=== PATIENT | female | born 1945 | race Hispanic/Latino ===

== ENCOUNTER 2016-07-14 14:20 | Inpatient (IN) | payer OTHER ==
[2016-07-14] MEDS ORDERED: NACL 0.9% 1000 ML 1,000 ML ONE ×2 (14:45→19:23)
[2016-07-14] MEDS ORDERED: NACL 0.9% 1000 ML 1,000 ML IV ONE ×3 (14:46→18:41)
[2016-07-14 15:19] LABS: ISTAT Base Excess -9; ISTAT HCO3 16.2; ISTAT PCO2 26.7 (35-45); ISTAT PH 7.391 (7.35-7.45); ISTAT PO2 52 (80-105); ISTAT SITE 1; ISTAT SO2 87; ISTAT TCO2 17
[2016-07-14 15:34] LABS: Hematocrit 36.1 % (30.3-42.9); Hemoglobin 11.7 gm/dl (10.1-14.3); Mean Corpuscular HGB Conc 32 % (30-34); Mean Corpuscular Hemoglobin 31 pg (28-32); Mean Corpuscular Volume 94 fl (79-97); Platelet Count 201 K/mm3 (140-440); Red Blood Count 3.83 M/mm3 (3.65-5.03); Red Cell Distribution Width 13.8 % (13.2-15.2)
[2016-07-14] MEDS ORDERED: LEVAQUIN 750MG/150ML 750 MG/150 ML BAG IV ONE (15:42)
[2016-07-14] MEDS ORDERED: ROCEPHIN/NS 1 GM/50 ML 1 GM/50 ML BAG IV ONE (15:42)
[2016-07-14 15:45] LABS: Alanine Aminotransferase 5 units/L (7-56); Albumin 3.1 g/dL (3.9-5); Albumin/Globulin Ratio 1.3 %; Alkaline Phosphatase 55 units/L (35-129); Bilirubin,Direct < 0.2 mg/dL (0-0.2); Bilirubin,Total 0.6 mg/dL (0.1-1.2); Magnesium 1.6 mg/dL (1.7-2.3); Total Protein 5.5 g/dL (6.3-8.2)
[2016-07-14 15:49] LABS: White Blood Count 40.7 K/mm3 (4.5-11.0)
[2016-07-14 15:59] LABS: INR 1.42 (0.87-1.13); Partial Thromboplastin Time 36.2 Sec. (24.2-36.6)
[2016-07-14 16:09] LABS: BUN/Creatinine Ratio 12.85; Calcium 7.6 mg/dL (8.4-10.2); Chloride 97.1 mmol/L (98-107)
--- NOTE | 2016-07-14 16:26 | Emergency Department Report ---
ED General Adult HPI - General Chief complaint: Altered Mental Status Stated complaint: AMS Time Seen by Provider: 07/14/16 14:43 Source: patient, EMS Mode of arrival: Stretcher Limitations: No Limitations - History of Present Illness Initial comments: Patient does have a history of lung cancer. I believe that it was probably successfully surgically treated. She is not on any chronic pain patches. She does take Lortab as well as Valium however. The family found her to be difficult to wake up. She has no history of medication overuse. She does arrive in the emergency department amply awake alert and responsive to name. She knows the month. She knows she is in the hospital. She can tell me that she has been coughing for some time. She does have a chronic cough however. She denies fever or chills. She denies any acute chest pain. She also denies any leg pain or swelling. She states she has no knowledge of previous cardiac condition or VTE. -: hour(s) Location: chest (she does have some chronic left-sided chest pain she states.) Consistency: intermittent Improves with: none Worsens with: none Associated Symptoms: cough - Related Data Home Medications Medication Instructions Recorded Confirmed Last Taken Baclofen [Lioresal] 10 mg PO TID 02/15/13 08/13/13 08/12/13 17:00 10mg Diazepam Tab [Valium] 5 mg PO BID PRN 02/15/13 08/13/13 08/12/13 08:00 5mg HYDROcodone/ACETAMINOPHEN 1 tab PO TID PRN 02/15/13 08/13/13 08/12/13 15:00 [Hydrocodone Acetaminophen 7.5/500 1 mg Tab] Levothyroxine [Synthroid] 112 mcg PO QAM 02/15/13 08/13/13 08/12/13 08:00 112mcg Pravastatin Sodium [Pravastatin 1 tab PO DAILY 07/29/13 08/13/13 08/12/13 08:00 Sodium] 40mg Tiotropium [Spiriva] 1 inhalation INHALATION DAILY 07/29/13 08/13/13 08/12/13 08 :00 1 puff Allergies Allergy/AdvReac Type Severity Reaction Status Date / Time No Known Allergies Allergy Verified 07/30/13 07:33 ED Review of Systems ROS: Stated complaint: AMS Other details as noted in HPI Comment: Unobtainable due to pts medical conditions (secondary to lethargy/ altered mental status) Constitutional: weakness. denies: chills, fever Eyes: denies: eye pain, eye discharge, vision change ENT: denies: ear pain, throat pain Respiratory: cough. denies: wheezing Cardiovascular: chest pain. denies: palpitations Endocrine: no symptoms reported Gastrointestinal: denies: abdominal pain, nausea, diarrhea Genitourinary: denies: urgency, dysuria, discharge Musculoskeletal: denies: back pain, joint swelling, arthralgia Skin: denies: rash, lesions Neurological: denies: headache, weakness, paresthesias Psychiatric: denies: anxiety, depression Hematological/Lymphatic: denies: easy bleeding, easy bruising ED Past Medical Hx - Past Medical History Hx Arthritis: Yes Hx COPD: Yes Additional medical history: cholesterol. pinched nerve. disc problems in back. thyroid - Surgical History Additional Surgical History: hysterectomy. right knee surgery - Social History Smoking Status: Never Smoker Substance Use Type: Prescribed - Medications Home Medications: Home Medications Medication Instructions Recorded Confirmed Last Taken Type Baclofen [Lioresal] 10 mg PO TID 02/15/13 08/13/13 08/12/13 17:00 History 10mg Diazepam Tab [Valium] 5 mg PO BID PRN 02/15/13 08/13/13 08/12/13 08:00 History 5mg HYDROcodone/ACETAMINOPHEN 1 tab PO TID PRN 02/15/13 08/13/13 08/12/13 15:00 History [Hydrocodone Acetaminophen 7.5/500 1 mg Tab] Levothyroxine [Synthroid] 112 mcg PO QAM 02/15/13 08/13/13 08/12/13 08:00 History 112mcg Pravastatin Sodium [Pravastatin 1 tab PO DAILY 07/29/13 08/13/13 08/12/13 08:00 History Sodium] 40mg Tiotropium [Spiriva] 1 inhalation INHALATION DAILY 07/29/13 08/13/13 08/12/13 08 :00 History 1 puff ED Physical Exam - General Limitations: No Limitations General appearance: alert, in no apparent distress - Head Head exam: Present: atraumatic, normocephalic - Eye Eye exam: Present: normal appearance, PERRL, EOMI. Absent: scleral icterus - ENT ENT exam: Present: normal exam, mucous membranes moist - Neck Neck exam: Present: normal inspection - Respiratory Respiratory exam: Present: decreased breath sounds. Absent: respiratory distress - Cardiovascular Cardiovascular Exam: Present: regular rate, normal rhythm. Absent: systolic murmur, diastolic murmur, rubs, gallop - GI/Abdominal GI/Abdominal exam: Present: soft, normal bowel sounds. Absent: distended, tenderness, guarding, rebound, rigid - Extremities Exam Extremities exam: Present: normal inspection. Absent: pedal edema, joint swelling, calf tenderness - Back Exam Back exam: Present: normal inspection - Neurological Exam Neurological exam: Present: alert, oriented X3, CN II-XII intact. Absent: motor sensory deficit - Psychiatric Psychiatric exam: Present: normal affect, normal mood - Skin Skin exam: Present: warm, dry, intact, normal color. Absent: rash ED Course Vital Signs 07/14/16 07/14/16 07/14/16 14:25 14:56 15:15 Temperature 97.4 F L Pulse Rate 92 H 92 H 85 Respiratory 16 16 26 H Rate Blood Pressure 84/49 Blood Pressure 71/45 [Left] O2 Sat by Pulse 99 99 97 Oximetry 07/14/16 07/14/16 07/14/16 15:20 15:21 15:25 Temperature Pulse Rate 85 89 Respiratory 19 23 Rate Blood Pressure 95/52 81/45 Blood Pressure [Left] O2 Sat by Pulse 98 98 89 Oximetry 07/14/16 07/14/16 07/14/16 15:30 15:35 15:40 Temperature Pulse Rate 89 84 84 Respiratory 16 23 25 H Rate Blood Pressure 79/46 96/55 96/55 Blood Pressure [Left] O2 Sat by Pulse 100 98 Oximetry 07/14/16 07/14/16 07/14/16 15:45 15:50 15:55 Temperature Pulse Rate 84 86 85 Respiratory 16 27 H 20 Rate Blood Pressure 93/54 86/49 93/52 Blood Pressure [Left] O2 Sat by Pulse 98 97 Oximetry 07/14/16 07/14/16 07/14/16 16:00 16:06 16:10 Temperature Pulse Rate 87 87 88 Respiratory 20 24 40 H Rate Blood Pressure 93/51 93/51 93/51 Blood Pressure [Left] O2 Sat by Pulse 97 96 97 Oximetry 07/14/16 07/14/16 07/14/16 16:15 16:20 16:26 Temperature Pulse Rate 89 88 88 Respiratory 35 H 44 H 27 H Rate Blood Pressure 87/48 87/48 87/48 Blood Pressure [Left] O2 Sat by Pulse 96 97 97 Oximetry 07/14/16 07/14/16 07/14/16 16:30 16:36 16:40 Temperature Pulse Rate 88 88 89 Respiratory 24 25 H 19 Rate Blood Pressure 80/47 80/47 80/47 Blood Pressure [Left] O2 Sat by Pulse 98 98 98 Oximetry 07/14/16 07/14/16 07/14/16 16:45 16:50 16:56 Temperature Pulse Rate 87 86 87 Respiratory 25 H 22 16 Rate Blood Pressure 87/47 87/47 87/47 Blood Pressure [Left] O2 Sat by Pulse 97 100 Oximetry 07/14/16 07/14/16 07/14/16 17:00 17:06 17:10 Temperature Pulse Rate 86 86 86 Respiratory 26 H 25 H 24 Rate Blood Pressure 88/48 88/48 88/48 Blood Pressure [Left] O2 Sat by Pulse 98 97 Oximetry 07/14/16 07/14/16 17:15 17:20 Temperature Pulse Rate 86 87 Respiratory 25 H 25 H Rate Blood Pressure 86/49 86/49 Blood Pressure [Left] O2 Sat by Pulse 98 Oximetry - Reevaluation(s) Reevaluation #1: General blood gas was performed. The patient was found to be hypoxic. She was placed on 2 L nasal cannula. This seemed to be ample on pulse oximetry. Her laboratory workup showed significant leukocytosis. Her chest x-ray showed a left lingular infiltrate that was acute compared to prior. She was started on ceftriaxone and Levaquin. She was admitted to the hospitalist service for further care and evaluation. She was given a bolus of IV fluid. She told me that her blood pressure is always low. She did improve with IV fluid. She was warm and did not seem to be in a shock state. Admitted to the hospitalist service in stable condition. 07/14/16 18:11 ED Medical Decision Making - Lab Data Result diagrams: 07/14/16 15:03 07/14/16 15:03 Laboratory Results - last 24 hr 07/14/16 07/14/16 07/14/16 15:03 15:03 15:03 WBC 40.7 H* RBC 3.83 Hgb 11.7 Hct 36.1 MCV 94 MCH 31 MCHC 32 RDW 13.8 Plt Count 201 Add Manual Diff Complete Total Counted 200 Seg Neutrophils % [employer] Seg Neuts % (Manual) 70.5 H Band Neutrophils % 20.0 Lymphocytes % (Manual) 6.0 L Reactive Lymphs % (Man) 0 Monocytes % (Manual) 3.5 Eosinophils % (Manual) 0 Basophils % (Manual) 0 Metamyelocytes % 0 Myelocytes % 0 Promyelocytes % 0 Blast Cells % 0 Nucleated RBC % Not Reportable Seg Neutrophils # Man 28.7 H Band Neutrophils # 8.1 Lymphocytes # (Manual) 2.4 Abs React Lymphs (Man) 0.0 Monocytes # (Manual) 1.4 H Eosinophils # (Manual) 0.0 Basophils # (Manual) 0.0 Metamyelocytes # 0.0 Myelocytes # 0.0 Promyelocytes # 0.0 Blast Cells # 0.0 WBC Morphology Not Reportable Hypersegmented Neuts Not Reportable Hyposegmented Neuts Not Reportable Hypogranular Neuts Not Reportable Smudge Cells Not Reportable Toxic Granulation Not Reportable Toxic Vacuolation Not Reportable Dohle Bodies Not Reportable Pelger-Huet Anomaly Not Reportable Brenda Rods Not Reportable Platelet Estimate Consistent w auto Clumped Platelets Not Reportable Plt Clumps, EDTA Not Reportable Large Platelets Not Reportable Giant Platelets Not Reportable Platelet Satelliting Not Reportable Plt Morphology Comment Not Reportable RBC Morphology Not Reportable Dimorphic RBCs Not Reportable Polychromasia Not Reportable Hypochromasia Not Reportable Poikilocytosis 1+ Anisocytosis Not Reportable Microcytosis Not Reportable Macrocytosis Not Reportable Spherocytes Not Reportable Pappenheimer Bodies Not Reportable Sickle Cells Not Reportable Target Cells Not Reportable Tear Drop Cells Not Reportable Ovalocytes Few Helmet Cells Not Reportable Simon-Castine Bodies Not Reportable [place] Rings Not Reportable [place] Cells Not Reportable Bite Cells Not Reportable Crenated Cell Not Reportable Elliptocytes Not Reportable Acanthocytes (Spur) Not Reportable Rouleaux Not Reportable Hemoglobin C Crystals Not Reportable Schistocytes Not Reportable Malaria parasites Not Reportable Jere Bodies Not Reportable Hem Pathologist Commnt No PT 17.3 H INR 1.42 H APTT 36.2 POC ABG pH POC ABG pCO2 POC ABG pO2 POC ABG HCO3 POC ABG Total CO2 POC ABG O2 Sat POC ABG Base Excess VBG pH FiO2 Sodium Potassium Chloride Carbon Dioxide Anion Gap BUN Creatinine Estimated GFR BUN/Creatinine Ratio Glucose Lactic Acid 2.5 H* Calcium Magnesium Total Bilirubin Direct Bilirubin Indirect Bilirubin AST ALT Alkaline Phosphatase Ammonia Troponin T NT-Pro-B Natriuret Pep Total Protein Albumin Albumin/Globulin Ratio Urine Color Urine Turbidity Urine pH Ur Specific [place] Urine Protein Urine Glucose (UA) Urine Ketones Urine Blood Urine Nitrite Urine Bilirubin Urine Urobilinogen Ur Leukocyte Esterase Urine WBC (Auto) Urine RBC (Auto) U Epithel Cells (Auto) Urine Mucus 07/14/16 07/14/16 07/14/16 15:03 15:03 15:03 WBC RBC Hgb Hct MCV MCH MCHC RDW Plt Count Add Manual Diff Total Counted Seg Neutrophils % Seg Neuts % (Manual) Band Neutrophils % Lymphocytes % (Manual) Reactive Lymphs % (Man) Monocytes % (Manual) Eosinophils % (Manual) Basophils % (Manual) Metamyelocytes % Myelocytes % Promyelocytes % Blast Cells % Nucleated RBC % Seg Neutrophils # Man Band Neutrophils # Lymphocytes # (Manual) Abs React Lymphs (Man) Monocytes # (Manual) Eosinophils # (Manual) Basophils # (Manual) Metamyelocytes # Myelocytes # Promyelocytes # Blast Cells # WBC Morphology Hypersegmented Neuts Hyposegmented Neuts Hypogranular Neuts Smudge Cells Toxic Granulation Toxic Vacuolation Dohle Bodies Pelger-Huet Anomaly Brenda Rods Platelet Estimate Clumped Platelets Plt Clumps, EDTA Large Platelets Giant Platelets Platelet Satelliting Plt Morphology Comment RBC Morphology Dimorphic RBCs Polychromasia Hypochromasia Poikilocytosis Anisocytosis Microcytosis Macrocytosis Spherocytes Pappenheimer Bodies Sickle Cells Target Cells Tear Drop Cells Ovalocytes Helmet Cells Simon-Castine Bodies [place] Rings Aram Cells Bite Cells Crenated Cell Elliptocytes Acanthocytes (Spur) Rouleaux Hemoglobin C Crystals Schistocytes Malaria parasites Jere Bodies Hem Pathologist Commnt PT INR APTT POC ABG pH POC ABG pCO2 POC ABG pO2 POC ABG HCO3 POC ABG Total CO2 POC ABG O2 Sat POC ABG Base Excess VBG pH 7.337 FiO2 Sodium Potassium Chloride Carbon Dioxide Anion Gap BUN Creatinine Estimated GFR BUN/Creatinine Ratio Glucose Lactic Acid Calcium Magnesium Total Bilirubin Direct Bilirubin Indirect Bilirubin AST ALT Alkaline Phosphatase Ammonia 24.0 L Troponin T < 0.010 NT-Pro-B Natriuret Pep 2583 H Total Protein Albumin Albumin/Globulin Ratio Urine Color Urine Turbidity Urine pH Ur Specific [place] Urine Protein Urine Glucose (UA) Urine Ketones Urine Blood Urine Nitrite Urine Bilirubin Urine Urobilinogen Ur Leukocyte Esterase Urine WBC (Auto) Urine RBC (Auto) U Epithel Cells (Auto) Urine Mucus 07/14/16 07/14/16 07/14/16 15:03 15:03 15:12 WBC RBC Hgb Hct MCV MCH MCHC RDW Plt Count Add Manual Diff Total Counted Seg Neutrophils % Seg Neuts % (Manual) Band Neutrophils % Lymphocytes % (Manual) Reactive Lymphs % (Man) Monocytes % (Manual) Eosinophils % (Manual) Basophils % (Manual) Metamyelocytes % Myelocytes % Promyelocytes % Blast Cells % Nucleated RBC % Seg Neutrophils # Man Band Neutrophils # Lymphocytes # (Manual) Abs React Lymphs (Man) Monocytes # (Manual) Eosinophils # (Manual) Basophils # (Manual) Metamyelocytes # Myelocytes # Promyelocytes # Blast Cells # WBC Morphology Hypersegmented Neuts Hyposegmented Neuts Hypogranular Neuts Smudge Cells Toxic Granulation Toxic Vacuolation Dohle Bodies Pelger-Huet Anomaly Brenda Rods Platelet Estimate Clumped Platelets Plt Clumps, EDTA Large Platelets Giant Platelets Platelet Satelliting Plt Morphology Comment RBC Morphology Dimorphic RBCs Polychromasia Hypochromasia Poikilocytosis Anisocytosis Microcytosis Macrocytosis Spherocytes Pappenheimer Bodies Sickle Cells Target Cells Tear Drop Cells Ovalocytes Helmet Cells Simon-Castine Bodies [place] Rings [place] Cells Bite Cells Crenated Cell Elliptocytes Acanthocytes (Spur) Rouleaux Hemoglobin C Crystals Schistocytes Malaria parasites Jere Bodies Hem Pathologist Commnt PT INR APTT POC ABG pH 7.391 POC ABG pCO2 26.7 L POC ABG pO2 52 L POC ABG HCO3 16.2 POC ABG Total CO2 17 POC ABG O2 Sat 87 POC ABG Base Excess -9 VBG pH FiO2 21 Sodium 132 L Potassium 4.0 Chloride 97.1 L Carbon Dioxide 19 L Anion Gap 20 BUN 18 H Creatinine 1.4 H Estimated GFR 37 BUN/Creatinine Ratio 12.85 Glucose 121 H Lactic Acid Calcium 7.6 L Magnesium 1.6 L Total Bilirubin 0.6 Direct Bilirubin < 0.2 Indirect Bilirubin 0.4 AST 13 ALT 5 L Alkaline Phosphatase 55 Ammonia Troponin T NT-Pro-B Natriuret Pep Total Protein 5.5 L Albumin 3.1 L Albumin/Globulin Ratio 1.3 Urine Color Urine Turbidity Urine pH Ur Specific [place] Urine Protein Urine Glucose (UA) Urine Ketones Urine Blood Urine Nitrite Urine Bilirubin Urine Urobilinogen Ur Leukocyte Esterase Urine WBC (Auto) Urine RBC (Auto) U Epithel Cells (Auto) Urine Mucus 07/14/16 15:35 WBC RBC Hgb Hct MCV MCH MCHC RDW Plt Count Add Manual Diff Total Counted Seg Neutrophils % Seg Neuts % (Manual) Band Neutrophils % Lymphocytes % (Manual) Reactive Lymphs % (Man) Monocytes % (Manual) Eosinophils % (Manual) Basophils % (Manual) Metamyelocytes % Myelocytes % Promyelocytes % Blast Cells % Nucleated RBC % Seg Neutrophils # Man Band Neutrophils # Lymphocytes # (Manual) Abs React Lymphs (Man) Monocytes # (Manual) Eosinophils # (Manual) Basophils # (Manual) Metamyelocytes # Myelocytes # Promyelocytes # Blast Cells # WBC Morphology Hypersegmented Neuts Hyposegmented Neuts Hypogranular Neuts Smudge Cells Toxic Granulation Toxic Vacuolation Dohle Bodies Pelger-Huet Anomaly Brenda Rods Platelet Estimate Clumped Platelets Plt Clumps, EDTA Large Platelets Giant Platelets Platelet Satelliting Plt Morphology Comment RBC Morphology Dimorphic RBCs Polychromasia Hypochromasia Poikilocytosis Anisocytosis Microcytosis Macrocytosis Spherocytes Pappenheimer Bodies Sickle Cells Target Cells Tear Drop Cells Ovalocytes Helmet Cells Simon-Castine Bodies [place] Rings Aram Cells Bite Cells Crenated Cell Elliptocytes Acanthocytes (Spur) Rouleaux Hemoglobin C Crystals Schistocytes Malaria parasites Jere Bodies Hem Pathologist Commnt PT INR APTT POC ABG pH POC ABG pCO2 POC ABG pO2 POC ABG HCO3 POC ABG Total CO2 POC ABG O2 Sat POC ABG Base Excess VBG pH FiO2 Sodium Potassium Chloride Carbon Dioxide Anion Gap BUN Creatinine Estimated GFR BUN/Creatinine Ratio Glucose Lactic Acid Calcium Magnesium Total Bilirubin Direct Bilirubin Indirect Bilirubin AST ALT Alkaline Phosphatase Ammonia Troponin T NT-Pro-B Natriuret Pep Total Protein Albumin Albumin/Globulin Ratio Urine Color Yellow Urine Turbidity Clear Urine pH 7.0 Ur Specific [place] 1.014 Urine Protein <15 mg/dl Urine Glucose (UA) Neg Urine Ketones Neg Urine Blood Neg Urine Nitrite Neg Urine Bilirubin Neg Urine Urobilinogen < 2.0 Ur Leukocyte Esterase Neg Urine WBC (Auto) 1.0 Urine RBC (Auto) 3.0 U Epithel Cells (Auto) < 1.0 Urine Mucus Few - EKG Data -: EKG Interpreted by Me EKG shows normal: sinus rhythm - EKG Data Interpretation: nonspecific ST-T wave arleen, other (small inferior Q's not necessarily diagnostic) - Radiology Data interpreted by me: Infiltrate left lung probably lingular Critical care attestation.: If time is entered above; I have spent that time in minutes in the direct care of this critically ill patient, excluding procedure time. ED Disposition Clinical Impression: History of lung cancer Pneumonia Qualifiers: Pneumonia type: due to unspecified organism Laterality: left Lung location: lower lobe of lung Qualified Code(s): J18.9 - Pneumonia, unspecified organism Leukocytosis Qualifiers: Leukocytosis type: bandemia Qualified Code(s): D72.825 - Bandemia Hypotension Qualifiers: Hypotension type: unspecified hypotension type Qualified Code(s): I95.9 - Hypotension, unspecified Disposition: OP ADMITTED IP TO THIS HOSP Is pt being admited?: Yes Does the pt Need Aspirin: Yes Condition: Stable Instructions: Bacterial Pneumonia (ED) Referrals: PRIMARY CARE, [Primary Care Provider] - 3-5 Days Time of Disposition: 18:16
[2016-07-14 16:28] LABS: Bilirubin,Urine NEG (Negative); Blood,Urine NEG (Negative); Ketones,Urine NEG (Negative); Leukocyte Esterase,Urine NEG (Negative); Mucus,Urine FEW /HPF; Nitrite,Urine NEG (Negative); Protein,Urine <15 mg/dL mg/dL (Negative); Urobilinogen,Urine < 2.0 mg/dL (<2.0)
[2016-07-14 16:56] LABS: Bilirubin,Indirect 0.4 mg/dL
[2016-07-14 17:10] LABS: Basophils % (Manual) 0 % (0.0-1.8); Blastocytes % (Manual) 0 %; Diff Status Complete; Eosinophils % (Manual) 0 % (0.0-4.3); Ovalocytes Few; Platelet Estimate Consistent w Auto; Poikilocytosis 1+; Total Cells Counted Percent 3.5
[2016-07-14] MEDS ORDERED: BABY ASPIRIN PO ONE (18:16)
--- NOTE | 2016-07-14 18:37 | History and Physical Report ---
History of Present Illness Date of examination: 07/14/16 Chief complaint: AMS History of present illness: Patient is 71-year-old fairly independent woman who still drives with a history of left lung cancer status post removal, dyslipidemia and hypothyroidism who presents with AMS due to difficult to arouse. She is thirsty, warm and sleepy, unable to get a good history because she is lethargic and drowsy. She does have a cough but uncertain the severity or productivity. She is not sure about a fever. Past History Past Medical History: other (as hpi) Past Surgical History: cataract removal, hysterectomy, hernia repair, Other ( right knee surgery and portion of left lung removed) Social history: full code. denies: smoking, alcohol abuse, prescription drug abuse, IV drug use Family history: no significant family history Medications and Allergies Allergies Allergy/AdvReac Type Severity Reaction Status Date / Time No Known Allergies Allergy Verified 07/30/13 07:33 Home Medications Medication Instructions Recorded Confirmed Last Taken Type Baclofen [Lioresal] 10 mg PO TID 02/15/13 07/14/16 08/12/13 17:00 History 10mg Diazepam Tab [Valium] 5 mg PO BID PRN 02/15/13 07/14/16 08/12/13 08:00 History 5mg HYDROcodone/ACETAMINOPHEN 1 tab PO TID PRN 02/15/13 07/14/16 08/12/13 15:00 History [Hydrocodone Acetaminophen 7.5/500 1 mg Tab] Levothyroxine [Synthroid] 112 mcg PO QAM 02/15/13 07/14/16 08/12/13 08:00 History 112mcg Pravastatin Sodium [Pravastatin 1 tab PO DAILY 07/29/13 07/14/16 08/12/13 08:00 History Sodium] 40mg Tiotropium [Spiriva] 1 inhalation INHALATION DAILY 07/29/13 07/14/16 08/12/13 08 :00 History 1 puff Active Meds: Active Medications Heparin Sodium (Porcine) (Heparin) 5,000 unit SUB-Q Q12HR MATTHEW Sodium Chloride (Nacl 0.9% 1000 Ml) 1,000 mls @ 250 mls/hr IV ONCE ONE Stop: 07/14/16 20:48 Last Admin: 07/14/16 16:49 Dose: 250 mls/hr Review of Systems All systems: negative (as HPI and all other ROS reviewed and negative.) Exam - Physical Exam Narrative exam: GEN: Cachectic thin frail ill-appearing toxic with mild increase accessory muscle usage lethargic HEENT: NCAT, PERRL, EOMI, OP VERY dry NECK: SUPPLE, NO THYROMEGALY, NO JVD, NO LAD CVS: RRR, NORMAL S1S2 LUNGS/CHEST: Tachypnea, bibasilar crackles NORMAL CHEST EXPANSION B, diminished AIR ENTRY B ABD: SOFT NTND, GBS, NO REBOUND OR GUARDING EXT/SKIN: NO SIGNIFICANT EDEMA OR RASH, mucous membranes membranes dry MSK: FROM X 4 EXTREMITIES NEURO: CN 2-12 GROSSLY INTACT, NO FOCAL DEFICITS PSY: CALM - Constitutional Vitals: Temp Pulse Resp BP Pulse Ox 97.4 F L 87 25 H 86/49 98 07/14/16 14:25 07/14/16 17:20 07/14/16 17:20 07/14/16 17:20 07/14/16 17:20 Results - Labs CBC & Chem 7: 07/14/16 15:03 07/14/16 15:03 Labs: Abnormal lab results 07/14/16 07/14/16 07/14/16 Range/Units 15:03 15:03 15:03 WBC 40.7 H* (4.5-11.0) K/mm3 Seg Neuts % (Manual) 70.5 H (40.0-70.0) % Lymphocytes % (Manual) 6.0 L (13.4-35.0) % Seg Neutrophils # Man 28.7 H (1.8-7.7) K/mm3 Monocytes # (Manual) 1.4 H (0.0-0.8) K/mm3 PT 17.3 H (12.2-14.9) Sec. INR 1.42 H (0.87-1.13) POC ABG pCO2 (35-45) POC ABG pO2 (80-105) Sodium (137-145) mmol/L Chloride (98-107) mmol/L Carbon Dioxide (22-30) mmol/L BUN (7-17) mg/dL Creatinine (0.7-1.2) mg/dL Glucose (65-100) mg/dL Lactic Acid 2.5 H* (0.7-2.0) mmol/L Calcium (8.4-10.2) mg/dL Magnesium (1.7-2.3) mg/dL ALT (7-56) units/L Ammonia (25-60) umol/L NT-Pro-B Natriuret Pep (0-900) pg/mL Total Protein (6.3-8.2) g/dL Albumin (3.9-5) g/dL 07/14/16 07/14/16 07/14/16 Range/Units 15:03 15:03 15:03 WBC (4.5-11.0) K/mm3 Seg Neuts % (Manual) (40.0-70.0) % Lymphocytes % (Manual) (13.4-35.0) % Seg Neutrophils # Man (1.8-7.7) K/mm3 Monocytes # (Manual) (0.0-0.8) K/mm3 PT (12.2-14.9) Sec. INR (0.87-1.13) POC ABG pCO2 (35-45) POC ABG pO2 (80-105) Sodium (137-145) mmol/L Chloride (98-107) mmol/L Carbon Dioxide (22-30) mmol/L BUN (7-17) mg/dL Creatinine (0.7-1.2) mg/dL Glucose (65-100) mg/dL Lactic Acid (0.7-2.0) mmol/L Calcium (8.4-10.2) mg/dL Magnesium 1.6 L (1.7-2.3) mg/dL ALT 5 L (7-56) units/L Ammonia 24.0 L (25-60) umol/L NT-Pro-B Natriuret Pep 2583 H (0-900) pg/mL Total Protein 5.5 L (6.3-8.2) g/dL Albumin 3.1 L (3.9-5) g/dL 07/14/16 07/14/16 Range/Units 15:03 15:12 WBC (4.5-11.0) K/mm3 Seg Neuts % (Manual) (40.0-70.0) % Lymphocytes % (Manual) (13.4-35.0) % Seg Neutrophils # Man (1.8-7.7) K/mm3 Monocytes # (Manual) (0.0-0.8) K/mm3 PT (12.2-14.9) Sec. INR (0.87-1.13) POC ABG pCO2 26.7 L (35-45) POC ABG pO2 52 L (80-105) Sodium 132 L (137-145) mmol/L Chloride 97.1 L (98-107) mmol/L Carbon Dioxide 19 L (22-30) mmol/L BUN 18 H (7-17) mg/dL Creatinine 1.4 H (0.7-1.2) mg/dL Glucose 121 H (65-100) mg/dL Lactic Acid (0.7-2.0) mmol/L Calcium 7.6 L (8.4-10.2) mg/dL Magnesium (1.7-2.3) mg/dL ALT (7-56) units/L Ammonia (25-60) umol/L NT-Pro-B Natriuret Pep (0-900) pg/mL Total Protein (6.3-8.2) g/dL Albumin (3.9-5) g/dL Assessment and Plan Patient is 71-year-old fairly independent woman who still drives with a history of left lung cancer status post removal, dyslipidemia and hypothyroidism who presents with AMS due to difficult to arouse. She is thirsty, warm and sleepy, unable to get a good history because she is lethargic and drowsy. She does have a cough but uncertain the severity or productivity. She is not sure about a fever. SBP still in 80 after 2liters on normal saline. On Venturi mask 35% Fio2. - Acute encephalopathy - Suspected L lung Pna: iv abx - Hypotensive, dehydrated clinically, needs more ivf - Severe sepsis, WBC 40k, make sure repeat lactic levels
[2016-07-14] MEDS ORDERED: ZOFRAN IV PRN (18:41)
[2016-07-14] MEDS ORDERED: TYLENOL PO PRN (18:41)
[2016-07-14] MEDS ORDERED: BABY ASPIRIN ONE (18:48)
[2016-07-15 04:29] LABS: Hematocrit 35.2 % (30.3-42.9); Hemoglobin 11.5 gm/dl (10.1-14.3); Mean Corpuscular HGB Conc 33 % (30-34); Mean Corpuscular Hemoglobin 31 pg (28-32); Mean Corpuscular Volume 94 fl (79-97); Platelet Count 196 K/mm3 (140-440); Red Blood Count 3.75 M/mm3 (3.65-5.03)
[2016-07-15 04:31] LABS: White Blood Count 36.9 K/mm3 (4.5-11.0)
[2016-07-15 04:46] LABS: Chloride 106.5 mmol/L (98-107); Potassium 4.2 mmol/L (3.6-5.0)
--- NOTE | 2016-07-15 08:24 | Progress Note ---
Assessment and Plan Assessment and plan: Acute metabolic nephropathy. This is much improved. She is now awake, alert, oriented. She is medically stable to transfer out of the unit Pneumonia left lung. Continue Levaquin IV. Pulmonology consulted. May need to rule out mass. Marked leukocytosis due to Pneumonia, possible sepsis Hyponatremia. Sodium was 132 on admission. This is now resolved. Acute kidney injury, improving. Continue IV fluids DVT Prophylaxis with Heparin subcut Qhs full CODE STATUS History of left lung cancer status post surgery Dyslipidemia Hypothyroidism History Interval history: Patiet admitted with altered mental status shortness of breath, Feels better, No more confusion, less shortness of breath Hospitalist Physical - Physical exam Narrative exam: Gen appearance: not in acute distress, HEENT: Normocephalic, atraumatic Neck : supple, no JVD Lungs: Lungs decreased breath sounds, no crackles or wheeze. Heart : S1 and S2 regular, no murmurs rubs or gallop, Abdomen: soft non-tender, non-distended, normal bowel sounds Extremities: No edema clubbing or cyanosis, Neuro :awake, alert, oriented, no focal signs, Psych: calm - Constitutional Vitals: Temp Pulse Resp BP Pulse Ox 98.1 F 80 23 120/75 95 07/15/16 07:58 07/15/16 08:00 07/15/16 08:00 07/15/16 08:00 07/15/16 08:00 Results - Labs CBC & Chem 7: 07/15/16 03:44 07/15/16 03:44 Labs: Laboratory Last Values WBC 36.9 K/mm3 (4.5-11.0) H 07/15/16 03:44 RBC 3.75 M/mm3 (3.65-5.03) 07/15/16 03:44 Hgb 11.5 gm/dl (10.1-14.3) 07/15/16 03:44 Hct 35.2 % (30.3-42.9) 07/15/16 03:44 MCV 94 fl (79-97) 07/15/16 03:44 MCH 31 pg (28-32) 07/15/16 03:44 MCHC 33 % (30-34) 07/15/16 03:44 RDW 14.0 % (13.2-15.2) 07/15/16 03:44 Plt Count 196 K/mm3 (140-440) 07/15/16 03:44 Add Manual Diff Complete 07/14/16 15:03 Total Counted 200 07/14/16 15:03 Seg Neutrophils % Physician Relations Representative 07/14/16 15:03 Seg Neuts % (Manual) 70.5 % (40.0-70.0) H 07/14/16 15:03 Band Neutrophils % 20.0 % 07/14/16 15:03 Lymphocytes % (Manual) 6.0 % (13.4-35.0) L 07/14/16 15:03 Reactive Lymphs % (Man) 0 % 07/14/16 15:03 Monocytes % (Manual) 3.5 % (0.0-7.3) 07/14/16 15:03 Eosinophils % (Manual) 0 % (0.0-4.3) 07/14/16 15:03 Basophils % (Manual) 0 % (0.0-1.8) 07/14/16 15:03 Metamyelocytes % 0 % 07/14/16 15:03 Myelocytes % 0 % 07/14/16 15:03 Promyelocytes % 0 % 07/14/16 15:03 Blast Cells % 0 % 07/14/16 15:03 Nucleated RBC % Not Reportable 07/14/16 15:03 Seg Neutrophils # Man 28.7 K/mm3 (1.8-7.7) H 07/14/16 15:03 Band Neutrophils # 8.1 K/mm3 07/14/16 15:03 Lymphocytes # (Manual) 2.4 K/mm3 (1.2-5.4) 07/14/16 15:03 Abs React Lymphs (Man) 0.0 K/mm3 07/14/16 15:03 Monocytes # (Manual) 1.4 K/mm3 (0.0-0.8) H 07/14/16 15:03 Eosinophils # (Manual) 0.0 K/mm3 (0.0-0.4) 07/14/16 15:03 Basophils # (Manual) 0.0 K/mm3 (0.0-0.1) 07/14/16 15:03 Metamyelocytes # 0.0 K/mm3 07/14/16 15:03 Myelocytes # 0.0 K/mm3 07/14/16 15:03 Promyelocytes # 0.0 K/mm3 07/14/16 15:03 Blast Cells # 0.0 K/mm3 07/14/16 15:03 WBC Morphology Not Reportable 07/14/16 15:03 Hypersegmented Neuts Not Reportable 07/14/16 15:03 Hyposegmented Neuts Not Reportable 07/14/16 15:03 Hypogranular Neuts Not Reportable 07/14/16 15:03 Smudge Cells Not Reportable 07/14/16 15:03 Toxic Granulation Not Reportable 07/14/16 15:03 Toxic Vacuolation Not Reportable 07/14/16 15:03 Dohle Bodies Not Reportable 07/14/16 15:03 Pelger-Huet Anomaly Not Reportable 07/14/16 15:03 Brenda Rods Not Reportable 07/14/16 15:03 Platelet Estimate Consistent w auto 07/14/16 15:03 Clumped Platelets Not Reportable 07/14/16 15:03 Plt Clumps, EDTA Not Reportable 07/14/16 15:03 Large Platelets Not Reportable 07/14/16 15:03 Giant Platelets Not Reportable 07/14/16 15:03 Platelet Satelliting Not Reportable 07/14/16 15:03 Plt Morphology Comment Not Reportable 07/14/16 15:03 RBC Morphology Not Reportable 07/14/16 15:03 Dimorphic RBCs Not Reportable 07/14/16 15:03 Polychromasia Not Reportable 07/14/16 15:03 Hypochromasia Not Reportable 07/14/16 15:03 Poikilocytosis 1+ 07/14/16 15:03 Anisocytosis Not Reportable 07/14/16 15:03 Microcytosis Not Reportable 07/14/16 15:03 Macrocytosis Not Reportable 07/14/16 15:03 Spherocytes Not Reportable 07/14/16 15:03 Pappenheimer Bodies Not Reportable 07/14/16 15:03 Sickle Cells Not Reportable 07/14/16 15:03 Target Cells Not Reportable 07/14/16 15:03 Tear Drop Cells Not Reportable 07/14/16 15:03 Ovalocytes Few 07/14/16 15:03 Helmet Cells Not Reportable 07/14/16 15:03 Simon-[place] Bodies Not Reportable 07/14/16 15:03 Palo Rings Not Reportable 07/14/16 15:03 Aram Cells Not Reportable 07/14/16 15:03 Bite Cells Not Reportable 07/14/16 15:03 Crenated Cell Not Reportable 07/14/16 15:03 Elliptocytes Not Reportable 07/14/16 15:03 Acanthocytes (Spur) Not Reportable 07/14/16 15:03 Rouleaux Not Reportable 07/14/16 15:03 Hemoglobin C Crystals Not Reportable 07/14/16 15:03 Schistocytes Not Reportable 07/14/16 15:03 Malaria parasites Not Reportable 07/14/16 15:03 Jere Bodies Not Reportable 07/14/16 15:03 Hem Pathologist Commnt No 07/14/16 15:03 PT 17.3 Sec. (12.2-14.9) H 07/14/16 15:03 INR 1.42 (0.87-1.13) H 07/14/16 15:03 APTT 36.2 Sec. (24.2-36.6) 07/14/16 15:03 POC ABG pH 7.391 (7.35-7.45) 07/14/16 15:12 POC ABG pCO2 26.7 (35-45) L 07/14/16 15:12 POC ABG pO2 52 (80-105) L 07/14/16 15:12 POC ABG HCO3 16.2 07/14/16 15:12 POC ABG Total CO2 17 07/14/16 15:12 POC ABG O2 Sat 87 07/14/16 15:12 POC ABG Base Excess -9 07/14/16 15:12 VBG pH 7.337 (7.320-7.420) 07/14/16 15:03 FiO2 21 % 07/14/16 15:12 Sodium 138 mmol/L (137-145) 07/15/16 03:44 Potassium 4.2 mmol/L (3.6-5.0) 07/15/16 03:44 Chloride 106.5 mmol/L (98-107) 07/15/16 03:44 Carbon Dioxide 17 mmol/L (22-30) L 07/15/16 03:44 Anion Gap 19 mmol/L 07/15/16 03:44 BUN 16 mg/dL (7-17) 07/15/16 03:44 Creatinine 1.0 mg/dL (0.7-1.2) 07/15/16 03:44 Estimated GFR 55 ml/min 07/15/16 03:44 BUN/Creatinine Ratio 16.00 % 07/15/16 03:44 Glucose 119 mg/dL (65-100) H 07/15/16 03:44 Lactic Acid 1.2 mmol/L (0.7-2.0) 07/14/16 19:49 Calcium 8.0 mg/dL (8.4-10.2) L 07/15/16 03:44 Magnesium 1.6 mg/dL (1.7-2.3) L 07/14/16 15:03 Total Bilirubin 0.6 mg/dL (0.1-1.2) 07/14/16 15:03 Direct Bilirubin < 0.2 mg/dL (0-0.2) 07/14/16 15:03 Indirect Bilirubin 0.4 mg/dL 07/14/16 15:03 AST 13 units/L (5-40) 07/14/16 15:03 ALT 5 units/L (7-56) L 07/14/16 15:03 Alkaline Phosphatase 55 units/L (35-129) 07/14/16 15:03 Ammonia 24.0 umol/L (25-60) L 07/14/16 15:03 Troponin T < 0.010 ng/mL (0.00-0.029) 07/14/16 15:03 NT-Pro-B Natriuret Pep 2583 pg/mL (0-900) H 07/14/16 15:03 Total Protein 5.5 g/dL (6.3-8.2) L 07/14/16 15:03 Albumin 3.1 g/dL (3.9-5) L 07/14/16 15:03 Albumin/Globulin Ratio 1.3 % 07/14/16 15:03 TSH 0.546 mlU/mL (0.270-4.200) 07/15/16 03:44 Urine Color Yellow (Yellow) 07/14/16 15:35 Urine Turbidity Clear (Clear) 07/14/16 15:35 Urine pH 7.0 (5.0-7.0) 02/05/17 15:35 Ur Specific [place] 1.014 (1.003-1.030) 07/14/16 15:35 Urine Protein <15 mg/dl mg/dL (Negative) 07/14/16 15:35 Urine Glucose (UA) Neg mg/dL (Negative) 07/14/16 15:35 Urine Ketones Neg mg/dL (Negative) 07/14/16 15:35 Urine Blood Neg (Negative) 07/14/16 15:35 Urine Nitrite Neg (Negative) 07/14/16 15:35 Urine Bilirubin Neg (Negative) 07/14/16 15:35 Urine Urobilinogen < 2.0 mg/dL (<2.0) 07/14/16 15:35 Ur Leukocyte Esterase Neg (Negative) 07/14/16 15:35 Urine WBC (Auto) 1.0 /HPF (0.0-6.0) 07/14/16 15:35 Urine RBC (Auto) 3.0 /HPF (0.0-6.0) 07/14/16 15:35 U Epithel Cells (Auto) < 1.0 /HPF (0-13.0) 07/14/16 15:35 Urine Mucus Few /HPF 07/14/16 15:35
--- NOTE | 2016-07-15 09:10 | XRay Report ---
AP CHEST HISTORY: Sepsis. FINDINGS: Compared to 08/13/[address] chest dated 03/23/14. Underlying emphysematous changes are noted. The interstitium is prominent bilaterally which may be related to chronic interstitial changes or radiation changes. There is mild volume loss in the left lung, correlate for partial pneumonectomy. There is an ill-defined 4-5 cm opacity in the superior lingula. This could represent an infiltrate although I cannot exclude a mass. The right lung remains generally clear. Heart size is within normal limits. IMPRESSION: Emphysematous changes. Mild volume loss in the left lung suggesting previous surgery. 4-5 cm masslike or infiltrative lesion in the superior lingula. Consider further evaluation with CT chest with contrast.
[2016-07-15] MEDS: PROTONIX PO SCH (09:27)
[2016-07-15] MEDS ORDERED: LEVAQUIN 750MG/150ML 150 ML IV SCH (10:00)
[2016-07-15] MEDS ORDERED: LEVAQUIN 750MG/150ML 750 MG/150 ML BAG IV SCH (10:00)
--- NOTE | 2016-07-15 13:03 | Admit Criteria Form ---
Admission Criteria Documentation: PNEUMONIA, COMMUNITY ACQUIRED Clinical Indications for Admission to Inpatient Care ( Place 'X' for any and all applicable criteria): Admission is indicated for ANY ONE of the following (1)(2)(3): [X]I. Hypoxemia indicated by ANY ONE of the following: [ ]a) Oxygen saturation less than 90% while breathing room air [X]b) PO2 less than 60 mm Hg (8.0 kPa) while breathing room air [X]c) Chronic lung disease with significant deterioration from baseline oxygenation [X]II. Appropriate diagnostic testing and treatment unavailable in outpatient or recovery facility (eg,testing or infection control measures unavailable(10) [ ]III. Moderate-risk or high-risk category patients (Pneumonia Severity Index (PSI) class IV or V, or CURB-65 score of 3 or greater). [ ]IV. Outpatient treatment failure as indicated by ANY ONE of the following(9) : [ ]a) Failure to respond to antibiotic (eg, resistant organism) [ ]b) Clinically significant adverse effects from medication (eg, vomiting) [ ]c) Complications of pneumonia (eg, empyema, bacteremia) [ ]d) Significant worsening of comorbid cond necessitating inpatient care (eg, chronic heart failure) [ ]V. Intermediate-risk category patients (eg, PSI class III or CURB-65 score 2) who do not improve with initial therapy and observation. [ ]. Immunocompromised patients (eg, AIDS, chronic steroid use) at moderate or high risk based on clinical evaluation. [ ]VII. Complicated pleural effusions (eg, exudative, loculated) [ ]VIII.Hemodynamic instability [ ] IX. Altered mental status that is severe or persistent. [ ]X. Dehydration that is severe or persistent. [X ]XI. Bacteremia [ ]XII. Respiratory finding (eg. tachypnea) that do not respond to outpatient or observation care treatment Extended stay beyond goal length of stay may be needed for (20) [ ]a) Unclear diagnosis [ ]b) Pleural disease [ ]c) Severe pneumonia or treatment failure (25 [ ]d) Respiratory failure (anticipate invasive or noninvasive ventilatory support) [ ]e) Abnormal serum electrolytes (serum Na concentration less than 135 mEq/L (mmol/L) (32)(33) [ ]f) Clinically significant comorbid illness (eg, heart failure, atrial fibrillation with rapid heart rate, alcohol withdrawal, renal insufficiency)(34)(35) [ ]g) Comorbid acute exacerbation of COPD(36) [ ]h) Concomitant diagnosis of malignancy that may be associated with malnutrition, immunologic impairment, or bronchial obstruction. [ ]i) Concomitant altered mental status [ ]j) Culture-identified Gram-negative or antibiotic-resistant organism (eg, Pseudomonas, methicillin-resistant Staphylococcus aureus)(30) [ ]k) Healthcare-associated pneumonia The original [employer] content created by [employer] has been revised. The portions of the content which have been revised are identified through the use of italic text or in bold, and [facility] has neither reviewed nor approved the modified material. All other unmodified content is copyright [employer]. Please see references footnoted in the original [employer] [employer] [facility] edition 2016 Admission Criteria Met: Yes
--- NOTE | 2016-07-15 17:23 | Consultation ---
History of Present Illness Consult date: 07/15/16 Requesting physician: ANABEL SIMMONS Reason for consult: pneumonia History of present illness: 71 yo presents with increased SOB, cough w/ yellow sputum, wheezing. No fevers, chills, chest pain, hemoptysis. She smokes. She has not been in hospital past 90 days. Past History Past Medical History: other (COPD, NSCLC, Smoker, Hypothyroidism, Hyperlipidemia ) Past Surgical History: cataract removal, hysterectomy, hernia repair, Other ( right knee surgery and portion of left lung removed) Social history: full code. denies: smoking, alcohol abuse, prescription drug abuse, IV drug use Family history: no significant family history Medications and Allergies Allergies Allergy/AdvReac Type Severity Reaction Status Date / Time No Known Allergies Allergy Verified 07/30/13 07:33 Home Medications Medication Instructions Recorded Confirmed Last Taken Type Baclofen [Lioresal] 10 mg PO TID 02/15/13 07/14/16 08/12/13 17:00 History 10mg Diazepam Tab [Valium] 5 mg PO BID PRN 02/15/13 07/14/16 08/12/13 08:00 History 5mg HYDROcodone/ACETAMINOPHEN 1 tab PO TID PRN 02/15/13 07/14/16 08/12/13 15:00 History [Hydrocodone Acetaminophen 7.5/500 1 mg Tab] Levothyroxine [Synthroid] 112 mcg PO QAM 02/15/13 07/14/16 08/12/13 08:00 History 112mcg Pravastatin Sodium [Pravastatin 1 tab PO DAILY 07/29/13 07/14/16 08/12/13 08:00 History Sodium] 40mg Tiotropium [Spiriva] 1 inhalation INHALATION DAILY 07/29/13 07/14/16 08/12/13 08 :00 History 1 puff Active Meds: Active Medications Acetaminophen (Tylenol) 650 mg PO Q6H PRN PRN Reason: Non Cardiac Pain or Temp>100.5 Albuterol/Ipratropium (Duoneb 0.5 Mg-3 Mg/3 Ml Soln) 1 ampul IH Q6HRT MATTHEW Heparin Sodium (Porcine) (Heparin) 5,000 unit SUB-Q Q12HR MATTHEW Hydrocortisone Sodium Succinate (Solu-Cortef) 100 mg IV Q8HR MATTHEW Last Admin: 07/15/16 13:33 Dose: 100 mg Levofloxacin/Dextrose (Levaquin 750mg/150ml) 750 mg in 150 mls @ 0 mls/hr IV Q48HR MATTHEW PRN Reason: Protocol Last Admin: 07/15/16 09:27 Dose: 75 mls/hr Ondansetron HCl (Zofran) 4 mg IV Q4H PRN PRN Reason: Nausea And Vomiting Pantoprazole Sodium (Protonix) 40 mg PO QDAY [facility] Last Admin: 07/15/16 09:27 Dose: 40 mg Review of Systems All systems: negative (neg x 10 except as per HPI) Physical Examination Vital signs: Vital Signs Temp Pulse Resp BP Pulse Ox 97.4 F L 92 H 16 84/49 99 07/14/16 14:25 07/14/16 14:25 07/14/16 14:25 07/14/16 14:25 07/14/16 14:25 Vital Signs - 24 hr 07/14/16 07/14/16 07/14/16 17:30 17:40 17:50 Temperature Pulse Rate 85 85 86 Respiratory 25 H 22 23 Rate Blood Pressure 85/48 85/48 81/48 Blood Pressure [Left] O2 Sat by Pulse 98 99 Oximetry 07/14/16 07/14/16 07/14/16 18:00 18:10 18:20 Temperature Pulse Rate 85 85 84 Respiratory 26 H 26 H 25 H Rate Blood Pressure 85/48 85/48 87/49 Blood Pressure [Left] O2 Sat by Pulse 98 98 Oximetry 07/14/16 07/14/16 07/14/16 18:28 18:30 18:40 Temperature Pulse Rate 86 84 84 Respiratory 18 26 H 25 H Rate Blood Pressure 85/50 85/50 Blood Pressure 88/52 [Left] O2 Sat by Pulse 96 98 Oximetry 07/14/16 07/14/16 07/14/16 18:50 19:00 19:10 Temperature Pulse Rate 84 83 84 Respiratory 26 H 21 26 H Rate Blood Pressure 88/51 95/52 88/51 Blood Pressure [Left] O2 Sat by Pulse 99 98 Oximetry 07/14/16 07/14/16 07/14/16 19:20 19:30 19:40 Temperature Pulse Rate 86 87 88 Respiratory 16 16 25 H Rate Blood Pressure 96/51 91/50 91/50 Blood Pressure [Left] O2 Sat by Pulse 98 94 98 Oximetry 07/14/16 07/14/16 07/14/16 19:41 19:50 20:00 Temperature Pulse Rate 88 89 85 Respiratory 18 24 24 Rate Blood Pressure 98/60 97/53 Blood Pressure 91/50 [Left] O2 Sat by Pulse 97 99 98 Oximetry 07/14/16 07/14/16 07/14/16 20:10 20:20 20:38 Temperature Pulse Rate 87 89 111 H Respiratory 23 18 17 Rate Blood Pressure 97/53 89/44 Blood Pressure [Left] O2 Sat by Pulse 98 97 Oximetry 07/14/16 07/14/16 07/14/16 20:40 20:50 20:54 Temperature Pulse Rate 118 H 115 H Respiratory 22 28 H 24 Rate Blood Pressure 143/116 Blood Pressure [Left] O2 Sat by Pulse 96 98 Oximetry 07/14/16 07/14/16 07/14/16 21:00 21:10 21:20 Temperature Pulse Rate 108 H 111 H 106 H Respiratory 26 H 20 27 H Rate Blood Pressure 143/116 105/70 105/70 Blood Pressure [Left] O2 Sat by Pulse 98 98 99 Oximetry 07/14/16 07/14/16 07/14/16 21:30 21:40 21:50 Temperature Pulse Rate 111 H 101 H 107 H Respiratory 23 24 26 H Rate Blood Pressure 105/70 105/70 105/70 Blood Pressure [Left] O2 Sat by Pulse 99 99 100 Oximetry 07/14/16 07/14/16 07/14/16 22:00 22:10 22:20 Temperature Pulse Rate 105 H 106 H 109 H Respiratory 25 H 24 23 Rate Blood Pressure 111/68 111/68 111/68 Blood Pressure [Left] O2 Sat by Pulse 98 99 98 Oximetry 07/14/16 07/14/16 07/14/16 22:30 22:40 22:50 Temperature Pulse Rate 105 H 106 H 105 H Respiratory 23 24 23 Rate Blood Pressure 111/68 111/68 111/68 Blood Pressure [Left] O2 Sat by Pulse 98 96 97 Oximetry 07/14/16 07/14/16 07/14/16 23:00 23:10 23:20 Temperature Pulse Rate 105 H 105 H 106 H Respiratory 24 23 22 Rate Blood Pressure 108/67 108/67 108/67 Blood Pressure [Left] O2 Sat by Pulse 95 97 96 Oximetry 07/14/16 07/14/16 07/14/16 23:30 23:40 23:50 Temperature Pulse Rate 108 H 108 H 109 H Respiratory 18 25 H 24 Rate Blood Pressure 108/67 108/67 108/67 Blood Pressure [Left] O2 Sat by Pulse 98 97 96 Oximetry 07/15/16 07/15/16 07/15/16 00:00 00:10 00:14 Temperature 98.0 F Pulse Rate 106 H 106 H 107 H Respiratory 24 23 22 Rate Blood Pressure 103/63 103/63 103/63 Blood Pressure [Left] O2 Sat by Pulse 97 97 96 Oximetry 07/15/16 07/15/16 07/15/16 00:20 00:30 00:40 Temperature Pulse Rate 109 H 108 H 107 H Respiratory 25 H 20 24 Rate Blood Pressure 103/63 103/63 103/63 Blood Pressure [Left] O2 Sat by Pulse 94 95 95 Oximetry 07/15/16 07/15/16 07/15/16 00:50 01:00 01:10 Temperature Pulse Rate 105 H 107 H 110 H Respiratory 24 20 23 Rate Blood Pressure 103/63 82/48 82/48 Blood Pressure [Left] O2 Sat by Pulse 94 94 96 Oximetry 07/15/16 07/15/16 07/15/16 01:20 01:30 01:40 Temperature Pulse Rate 109 H 101 H 106 H Respiratory 22 21 19 Rate Blood Pressure 99/58 99/58 99/58 Blood Pressure [Left] O2 Sat by Pulse 94 93 95 Oximetry 07/15/16 07/15/16 07/15/16 01:50 02:00 02:10 Temperature Pulse Rate 104 H 104 H 104 H Respiratory 16 21 21 Rate Blood Pressure 99/58 101/61 101/61 Blood Pressure [Left] O2 Sat by Pulse 95 94 95 Oximetry 07/15/16 07/15/16 07/15/16 02:20 02:30 02:40 Temperature Pulse Rate 106 H 108 H 107 H Respiratory 22 22 22 Rate Blood Pressure 101/61 101/61 101/61 Blood Pressure [Left] O2 Sat by Pulse 95 94 96 Oximetry 07/15/16 07/15/16 07/15/16 02:50 03:00 03:10 Temperature Pulse Rate 106 H 105 H 104 H Respiratory 22 23 21 Rate Blood Pressure 101/61 99/54 99/54 Blood Pressure [Left] O2 Sat by Pulse 95 94 94 Oximetry 07/15/16 07/15/16 07/15/16 03:20 03:30 03:40 Temperature Pulse Rate 104 H 107 H 107 H Respiratory 22 20 30 H Rate Blood Pressure 99/54 99/54 99/54 Blood Pressure [Left] O2 Sat by Pulse 96 93 96 Oximetry 07/15/16 07/15/16 07/15/16 03:50 04:00 04:10 Temperature 98.2 F Pulse Rate 102 H 101 H 101 H Respiratory 22 22 21 Rate Blood Pressure 99/54 105/58 105/58 Blood Pressure [Left] O2 Sat by Pulse 95 95 96 Oximetry 07/15/16 07/15/16 07/15/16 04:20 04:30 04:40 Temperature Pulse Rate 80 82 86 Respiratory 22 21 24 Rate Blood Pressure 105/58 105/58 105/58 Blood Pressure [Left] O2 Sat by Pulse 96 97 94 Oximetry 07/15/16 07/15/16 07/15/16 04:50 05:00 05:10 Temperature Pulse Rate 78 78 80 Respiratory 21 22 22 Rate Blood Pressure 105/58 99/56 99/56 Blood Pressure [Left] O2 Sat by Pulse 97 98 97 Oximetry 07/15/16 07/15/16 07/15/16 05:20 05:30 05:40 Temperature Pulse Rate 78 81 80 Respiratory 22 23 22 Rate Blood Pressure 99/56 99/56 99/56 Blood Pressure [Left] O2 Sat by Pulse 97 97 96 Oximetry 07/15/16 07/15/16 07/15/16 05:50 06:00 06:10 Temperature Pulse Rate 82 88 80 Respiratory 23 23 22 Rate Blood Pressure 99/56 105/63 105/63 Blood Pressure [Left] O2 Sat by Pulse 98 98 95 Oximetry 07/15/16 07/15/16 07/15/16 06:20 06:30 06:40 Temperature Pulse Rate 80 81 80 Respiratory 22 22 22 Rate Blood Pressure 105/63 105/63 105/63 Blood Pressure [Left] O2 Sat by Pulse 96 96 96 Oximetry 07/15/16 07/15/16 07/15/16 06:50 07:00 07:10 Temperature Pulse Rate 82 81 84 Respiratory 21 24 12 Rate Blood Pressure 105/63 112/68 112/68 Blood Pressure [Left] O2 Sat by Pulse 96 96 97 Oximetry 07/15/16 07/15/16 07/15/16 07:20 07:30 07:40 Temperature Pulse Rate 79 79 80 Respiratory 23 23 22 Rate Blood Pressure 112/68 112/68 112/68 Blood Pressure [Left] O2 Sat by Pulse 96 96 96 Oximetry 07/15/16 07/15/16 07/15/16 07:50 07:58 08:00 Temperature 98.1 F Pulse Rate 85 80 Respiratory 17 23 Rate Blood Pressure 112/68 120/75 Blood Pressure [Left] O2 Sat by Pulse 96 95 Oximetry 07/15/16 07/15/16 07/15/16 08:10 08:20 08:30 Temperature Pulse Rate 82 86 85 Respiratory 22 15 18 Rate Blood Pressure 120/75 120/75 120/75 Blood Pressure [Left] O2 Sat by Pulse 95 97 98 Oximetry 07/15/16 07/15/16 07/15/16 08:40 08:50 09:00 Temperature Pulse Rate 88 86 90 Respiratory 19 17 25 H Rate Blood Pressure 120/75 120/75 131/77 Blood Pressure [Left] O2 Sat by Pulse 97 98 96 Oximetry 07/15/16 07/15/16 07/15/16 09:10 09:12 09:20 Temperature Pulse Rate 86 87 Respiratory 21 24 Rate Blood Pressure 131/77 131/77 Blood Pressure [Left] O2 Sat by Pulse 98 98 96 Oximetry 07/15/16 07/15/16 07/15/16 09:32 09:40 09:50 Temperature Pulse Rate 90 84 Respiratory 23 22 Rate Blood Pressure 131/77 131/77 131/77 Blood Pressure [Left] O2 Sat by Pulse 93 99 98 Oximetry 07/15/16 07/15/16 07/15/16 10:00 10:10 10:20 Temperature Pulse Rate 84 84 86 Respiratory 22 22 22 Rate Blood Pressure 130/76 130/76 130/76 Blood Pressure [Left] O2 Sat by Pulse 98 98 Oximetry 07/15/16 07/15/16 07/15/16 10:30 10:40 10:50 Temperature Pulse Rate 88 88 91 H Respiratory 17 20 21 Rate Blood Pressure 130/76 130/76 130/76 Blood Pressure [Left] O2 Sat by Pulse 97 99 98 Oximetry 07/15/16 07/15/16 07/15/16 11:00 11:10 11:20 Temperature Pulse Rate 87 89 87 Respiratory 23 22 24 Rate Blood Pressure 130/76 130/76 130/76 Blood Pressure [Left] O2 Sat by Pulse 97 98 97 Oximetry 07/15/16 07/15/16 07/15/16 11:30 11:40 11:50 Temperature Pulse Rate 90 87 90 Respiratory 24 24 17 Rate Blood Pressure 130/76 130/76 130/76 Blood Pressure [Left] O2 Sat by Pulse 98 98 99 Oximetry 07/15/16 07/15/16 07/15/16 12:00 12:10 12:20 Temperature 98.3 F Pulse Rate 90 88 89 Respiratory 24 23 22 Rate Blood Pressure 123/78 123/78 123/78 Blood Pressure [Left] O2 Sat by Pulse 97 98 Oximetry 07/15/16 07/15/16 07/15/16 12:30 12:40 12:50 Temperature Pulse Rate 89 93 H 91 H Respiratory 20 21 22 Rate Blood Pressure 123/78 123/78 123/78 Blood Pressure [Left] O2 Sat by Pulse 98 98 98 Oximetry 07/15/16 07/15/16 07/15/16 13:00 13:10 13:20 Temperature Pulse Rate 88 94 H 94 H Respiratory 23 21 18 Rate Blood Pressure 133/78 123/78 123/78 Blood Pressure [Left] O2 Sat by Pulse 98 98 Oximetry 07/15/16 07/15/16 07/15/16 13:30 13:40 13:50 Temperature Pulse Rate 94 H 89 93 H Respiratory 20 23 23 Rate Blood Pressure 123/78 133/78 133/78 Blood Pressure [Left] O2 Sat by Pulse 98 97 98 Oximetry 07/15/16 07/15/16 07/15/16 14:00 14:10 16:00 Temperature 99.5 F Pulse Rate 89 87 Respiratory 17 25 H Rate Blood Pressure 130/76 130/76 Blood Pressure [Left] O2 Sat by Pulse 98 98 Oximetry General appearance: no acute distress, alert Eyes: non-icteric ENT: oropharynx moist Neck: supple Effort: normal Ascultation: Bilateral: wheezes (faint wheezes bilaterally w/ few rhonchi) Cardiovascular: regular rate and rhythm (no mrg) Gastrointestinal: normoactive bowel sounds, soft, non-tender, non-distended Integumentary: normal Extremities: no cyanosis, no edema, pink and warm normal mental status, non-focal exam, pupils equal and round, CN II-XII normal mood appropriate, affect normal Results - Laboratory Findings CBC and BMP: 07/15/16 03:44 07/15/16 03:44 ABG POC ABG pH 7.391 (7.35-7.45) 07/14/16 15:12 POC ABG pCO2 26.7 (35-45) L 07/14/16 15:12 POC ABG pO2 52 (80-105) L 07/14/16 15:12 POC ABG HCO3 16.2 07/14/16 15:12 POC ABG Total CO2 17 07/14/16 15:12 POC ABG O2 Sat 87 07/14/16 15:12 PT/INR, D-dimer PT 17.3 Sec. (12.2-14.9) H 07/14/16 15:03 INR 1.42 (0.87-1.13) H 07/14/16 15:03 Abnormal lab findings: Abnormal Labs 07/15/16 07/15/16 03:44 03:44 WBC 36.9 H Carbon Dioxide 17 L Glucose 119 H Calcium 8.0 L - Diagnostic Findings Chest x-ray: report reviewed, image reviewed (L lung infiltrate) Assessment and Plan Imp: 1. CAP 2. Sepsis 3. Acute respiratory failure 4. AMBROCIO 5. Mild Lactic acidosis, resolved 6. Centrilobular emphysema 7. COPD exac. 8. Chronic nicotine dependence, cigs 9. Hx of NSCLC Rec: 1. Levaquin IV 2. Solumedrol IV BID 3. Duonebs 4. DVT PPx 5. Repeat CXR PA & Lat 6. Consider CT chest if no improvement 7. Smoking cessation counseling done Plan of care reviewed w/ patient, she understands/agrees
[2016-07-15] MEDS: DUONEB 0.5 MG-3 MG/3 ML SOLN IH SCH (20:22)
[2016-07-15] MEDS ORDERED: PROVENTIL IH PRN (20:25)
[2016-07-15] MEDS: HEPARIN SUB-Q SCH (22:15)
[2016-07-16] MEDS: DUONEB 0.5 MG-3 MG/3 ML SOLN IH SCH ×4 (01:43→19:59)
[2016-07-16] MEDS: SYNTHROID PO SCH (05:33)
[2016-07-16 09:06] LABS: Hematocrit 36.9 % (30.3-42.9); Hemoglobin 12.2 gm/dl (10.1-14.3); Mean Corpuscular HGB Conc 33 % (30-34); Mean Corpuscular Hemoglobin 31 pg (28-32); Mean Corpuscular Volume 93 fl (79-97); Platelet Count 227 K/mm3 (140-440); Red Blood Count 3.97 M/mm3 (3.65-5.03); Red Cell Distribution Width 13.6 % (13.2-15.2)
--- NOTE | 2016-07-16 09:27 | XRay Report ---
CHEST X-RAY, 2 VIEWS: HISTORY: Pneumonia. FINDINGS: No significant change is demonstrated in the left lung infiltrate since 07/14/16. The right lung remains generally clear. Underlying chronic interstitial changes and volume loss in the left lung are again noted. Heart size remains within normal limits. IMPRESSION: No significant change.
[2016-07-16 09:53] LABS: BUN/Creatinine Ratio 18.18; Calcium 8.5 mg/dL (8.4-10.2); Chloride 104.7 mmol/L (98-107); Magnesium 2.1 mg/dL (1.7-2.3); Potassium 3.5 mmol/L (3.6-5.0)
[2016-07-16] MEDS ORDERED: PRAVASTATIN SODIUM PO SCH (10:00)
[2016-07-16] MEDS: PROTONIX PO SCH (10:57)
[2016-07-16] MEDS: LEVAQUIN 750MG/150ML 750 MG/150 ML BAG IV SCH (11:00)
--- NOTE | 2016-07-16 11:44 | Progress Note ---
Assessment and Plan Assessment and plan: Acute toxic metabolic nephropathy. This is much improved. She is now awake, alert, oriented. Sepsis. On Levaquin iv. Pneumonia left lung. Continue Levaquin IV. Pulmonology following. May need to rule out mass. Marked leukocytosis due to Pneumonia and sepsis. improving. WBC is now 26 from 40.7 on admission Hyponatremia. Sodium was 132 on admission. This is now resolved. Hypokalemia. Replace orally Acute kidney injury, improving. Continue IV fluids DVT Prophylaxis with Heparin subcut Qhs full CODE STATUS History of left lung cancer status post surgery Dyslipidemia Hypothyroidism History Interval history: Patiet admitted with altered mental status shortness of breath, Feels better, No more confusion, less shortness of breath, no chest pain Hospitalist Physical - Physical exam Narrative exam: Gen appearance: not in acute distress, HEENT: Normocephalic, atraumatic Neck : supple, no JVD Lungs: Lungs decreased breath sounds, no crackles or wheeze. Heart : S1 and S2 regular, no murmurs rubs or gallop, Abdomen: soft non-tender, non-distended, normal bowel sounds Extremities: No edema clubbing or cyanosis, Neuro :awake, alert, oriented x 3, no focal signs, Psych: calm - Constitutional Vitals: Temp Pulse Resp BP Pulse Ox 98 F 94 H 20 130/90 96 07/16/16 08:10 07/16/16 08:10 07/16/16 08:10 07/16/16 08:10 07/16/16 08:10 Results - Labs CBC & Chem 7: 07/16/16 08:24 07/16/16 08:24 Labs: Laboratory Last Values WBC 26.0 K/mm3 (4.5-11.0) H 07/16/16 08:24 RBC 3.97 M/mm3 (3.65-5.03) 07/16/16 08:24 Hgb 12.2 gm/dl (10.1-14.3) 07/16/16 08:24 Hct 36.9 % (30.3-42.9) 07/16/16 08:24 MCV 93 fl (79-97) 07/16/16 08:24 MCH 31 pg (28-32) 07/16/16 08:24 MCHC 33 % (30-34) 07/16/16 08:24 RDW 13.6 % (13.2-15.2) 07/16/16 08:24 Plt Count 227 K/mm3 (140-440) 07/16/16 08:24 Add Manual Diff Complete 07/14/16 15:03 Total Counted 200 07/14/16 15:03 Seg Neutrophils % Sap Technical Developer 07/14/16 15:03 Seg Neuts % (Manual) 70.5 % (40.0-70.0) H 07/14/16 15:03 Band Neutrophils % 20.0 % 07/14/16 15:03 Lymphocytes % (Manual) 6.0 % (13.4-35.0) L 07/14/16 15:03 Reactive Lymphs % (Man) 0 % 07/14/16 15:03 Monocytes % (Manual) 3.5 % (0.0-7.3) 07/14/16 15:03 Eosinophils % (Manual) 0 % (0.0-4.3) 07/14/16 15:03 Basophils % (Manual) 0 % (0.0-1.8) 07/14/16 15:03 Metamyelocytes % 0 % 07/14/16 15:03 Myelocytes % 0 % 07/14/16 15:03 Promyelocytes % 0 % 07/14/16 15:03 Blast Cells % 0 % 07/14/16 15:03 Nucleated RBC % Not Reportable 07/14/16 15:03 Seg Neutrophils # Man 28.7 K/mm3 (1.8-7.7) H 07/14/16 15:03 Band Neutrophils # 8.1 K/mm3 07/14/16 15:03 Lymphocytes # (Manual) 2.4 K/mm3 (1.2-5.4) 07/14/16 15:03 Abs React Lymphs (Man) 0.0 K/mm3 07/14/16 15:03 Monocytes # (Manual) 1.4 K/mm3 (0.0-0.8) H 07/14/16 15:03 Eosinophils # (Manual) 0.0 K/mm3 (0.0-0.4) 07/14/16 15:03 Basophils # (Manual) 0.0 K/mm3 (0.0-0.1) 07/14/16 15:03 Metamyelocytes # 0.0 K/mm3 07/14/16 15:03 Myelocytes # 0.0 K/mm3 07/14/16 15:03 Promyelocytes # 0.0 K/mm3 07/14/16 15:03 Blast Cells # 0.0 K/mm3 07/14/16 15:03 WBC Morphology Not Reportable 07/14/16 15:03 Hypersegmented Neuts Not Reportable 07/14/16 15:03 Hyposegmented Neuts Not Reportable 07/14/16 15:03 Hypogranular Neuts Not Reportable 07/14/16 15:03 Smudge Cells Not Reportable 07/14/16 15:03 Toxic Granulation Not Reportable 07/14/16 15:03 Toxic Vacuolation Not Reportable 07/14/16 15:03 Dohle Bodies Not Reportable 07/14/16 15:03 Pelger-Huet Anomaly Not Reportable 07/14/16 15:03 Brenda Rods Not Reportable 07/14/16 15:03 Platelet Estimate Consistent w auto 07/14/16 15:03 Clumped Platelets Not Reportable 07/14/16 15:03 Plt Clumps, EDTA Not Reportable 07/14/16 15:03 Large Platelets Not Reportable 07/14/16 15:03 Giant Platelets Not Reportable 07/14/16 15:03 Platelet Satelliting Not Reportable 07/14/16 15:03 Plt Morphology Comment Not Reportable 07/14/16 15:03 RBC Morphology Not Reportable 07/14/16 15:03 Dimorphic RBCs Not Reportable 07/14/16 15:03 Polychromasia Not Reportable 07/14/16 15:03 Hypochromasia Not Reportable 07/14/16 15:03 Poikilocytosis 1+ 07/14/16 15:03 Anisocytosis Not Reportable 07/14/16 15:03 Microcytosis Not Reportable 07/14/16 15:03 Macrocytosis Not Reportable 07/14/16 15:03 Spherocytes Not Reportable 07/14/16 15:03 Pappenheimer Bodies Not Reportable 07/14/16 15:03 Sickle Cells Not Reportable 07/14/16 15:03 Target Cells Not Reportable 07/14/16 15:03 Tear Drop Cells Not Reportable 07/14/16 15:03 Ovalocytes Few 07/14/16 15:03 Helmet Cells Not Reportable 07/14/16 15:03 Simon-Arbyrd Bodies Not Reportable 07/14/16 15:03 [place] Rings Not Reportable 07/14/16 15:03 Aram Cells Not Reportable 07/14/16 15:03 Bite Cells Not Reportable 07/14/16 15:03 Crenated Cell Not Reportable 07/14/16 15:03 Elliptocytes Not Reportable 07/14/16 15:03 Acanthocytes (Spur) Not Reportable 07/14/16 15:03 Rouleaux Not Reportable 07/14/16 15:03 Hemoglobin C Crystals Not Reportable 07/14/16 15:03 Schistocytes Not Reportable 07/14/16 15:03 Malaria parasites Not Reportable 07/14/16 15:03 Jere Bodies Not Reportable 07/14/16 15:03 Hem Pathologist Commnt No 07/14/16 15:03 PT 17.3 Sec. (12.2-14.9) H 07/14/16 15:03 INR 1.42 (0.87-1.13) H 07/14/16 15:03 APTT 36.2 Sec. (24.2-36.6) 07/14/16 15:03 POC ABG pH 7.391 (7.35-7.45) 07/14/16 15:12 POC ABG pCO2 26.7 (35-45) L 07/14/16 15:12 POC ABG pO2 52 (80-105) L 07/14/16 15:12 POC ABG HCO3 16.2 07/14/16 15:12 POC ABG Total CO2 17 07/14/16 15:12 POC ABG O2 Sat 87 07/14/16 15:12 POC ABG Base Excess -9 07/14/16 15:12 VBG pH 7.337 (7.320-7.420) 07/14/16 15:03 FiO2 21 % 07/14/16 15:12 Sodium 138 mmol/L (137-145) 07/16/16 08:24 Potassium 3.5 mmol/L (3.6-5.0) L 07/16/16 08:24 Chloride 104.7 mmol/L (98-107) 07/16/16 08:24 Carbon Dioxide 19 mmol/L (22-30) L 07/16/16 08:24 Anion Gap 18 mmol/L 07/16/16 08:24 BUN 20 mg/dL (7-17) H 07/16/16 08:24 Creatinine 1.1 mg/dL (0.7-1.2) 07/16/16 08:24 Estimated GFR 49 ml/min 07/16/16 08:24 BUN/Creatinine Ratio 18.18 % 07/16/16 08:24 Glucose 116 mg/dL (65-100) H 07/16/16 08:24 Lactic Acid 1.2 mmol/L (0.7-2.0) 07/14/16 19:49 Calcium 8.5 mg/dL (8.4-10.2) 07/16/16 08:24 Magnesium 2.1 mg/dL (1.7-2.3) 07/16/16 08:24 Total Bilirubin 0.6 mg/dL (0.1-1.2) 07/14/16 15:03 Direct Bilirubin < 0.2 mg/dL (0-0.2) 07/14/16 15:03 Indirect Bilirubin 0.4 mg/dL 07/14/16 15:03 AST 13 units/L (5-40) 07/14/16 15:03 ALT 5 units/L (7-56) L 07/14/16 15:03 Alkaline Phosphatase 55 units/L (35-129) 07/14/16 15:03 Ammonia 24.0 umol/L (25-60) L 07/14/16 15:03 Troponin T < 0.010 ng/mL (0.00-0.029) 07/14/16 15:03 NT-Pro-B Natriuret Pep 2583 pg/mL (0-900) H 07/14/16 15:03 Total Protein 5.5 g/dL (6.3-8.2) L 07/14/16 15:03 Albumin 3.1 g/dL (3.9-5) L 07/14/16 15:03 Albumin/Globulin Ratio 1.3 % 07/14/16 15:03 TSH 0.546 mlU/mL (0.270-4.200) 07/15/16 03:44 Urine Color Yellow (Yellow) 07/14/16 15:35 Urine Turbidity Clear (Clear) 07/14/16 15:35 Urine pH 7.0 (5.0-7.0) 07/14/16 15:35 Ur Specific [place] 1.014 (1.003-1.030) 07/14/16 15:35 Urine Protein <15 mg/dl mg/dL (Negative) 07/14/16 15:35 Urine Glucose (UA) Neg mg/dL (Negative) 07/14/16 15:35 Urine Ketones Neg mg/dL (Negative) 07/14/16 15:35 Urine Blood Neg (Negative) 07/14/16 15:35 Urine Nitrite Neg (Negative) 07/14/16 15:35 Urine Bilirubin Neg (Negative) 07/14/16 15:35 Urine Urobilinogen < 2.0 mg/dL (<2.0) 07/14/16 15:35 Ur Leukocyte Esterase Neg (Negative) 07/14/16 15:35 Urine WBC (Auto) 1.0 /HPF (0.0-6.0) 07/14/16 15:35 Urine RBC (Auto) 3.0 /HPF (0.0-6.0) 07/14/16 15:35 U Epithel Cells (Auto) < 1.0 /HPF (0-13.0) 07/14/16 15:35 Urine Mucus Few /HPF 07/14/16 15:35
[2016-07-16] MEDS: HEPARIN SUB-Q SCH ×2 (12:40→22:11)
--- NOTE | 2016-07-16 12:57 | Progress Note ---
Assessment and Plan Imp: 1. CAP 2. Sepsis 3. Acute respiratory failure 4. AMBROCIO 5. Mild Lactic acidosis, resolved 6. Centrilobular emphysema 7. COPD exac. 8. Chronic nicotine dependence, cigs 9. Hx of NSCLC Rec: 1. Levaquin IV; complete 10 days total 2. Solumedrol IV BID 3. Duonebs 4. DVT PPx 5. Smoking cessation counseling done 6. F/u CXR to resolution of infiltrates, and she understands importance of doing so; office/contact information given to her 7. Mobilize/ambulate Plan of care reviewed w/ patient, she understands/agrees Subjective Date of service: 07/16/16 Principal diagnosis: Pneumonia Interval history: No events. SOB better. Still w/ cough, clear sputum. No chest pain. On RA. Vital Signs - 24 hr 07/15/16 07/15/16 07/15/16 13:00 13:10 13:20 Temperature Pulse Rate 88 94 H 94 H Pulse Rate [ Anterior Bilateral Throughout] Pulse Rate [ Left] Pulse Rate [ Right Radial] Respiratory 23 21 18 Rate Respiratory Rate [Anterior Bilateral Throughout] Blood Pressure 133/78 123/78 123/78 O2 Sat by Pulse 98 98 Oximetry 07/15/16 07/15/16 07/15/16 13:30 13:40 13:50 Temperature Pulse Rate 94 H 89 93 H Pulse Rate [ Anterior Bilateral Throughout] Pulse Rate [ Left] Pulse Rate [ Right Radial] Respiratory 20 23 23 Rate Respiratory Rate [Anterior Bilateral Throughout] Blood Pressure 123/78 133/78 133/78 O2 Sat by Pulse 98 97 98 Oximetry 07/15/16 07/15/16 07/15/16 14:00 14:10 14:40 Temperature Pulse Rate 89 87 103 H Pulse Rate [ Anterior Bilateral Throughout] Pulse Rate [ Left] Pulse Rate [ Right Radial] Respiratory 17 25 H 19 Rate Respiratory Rate [Anterior Bilateral Throughout] Blood Pressure 130/76 130/76 O2 Sat by Pulse 98 98 98 Oximetry 07/15/16 07/15/16 07/15/16 14:50 15:00 15:10 Temperature Pulse Rate 91 H 90 89 Pulse Rate [ Anterior Bilateral Throughout] Pulse Rate [ Left] Pulse Rate [ Right Radial] Respiratory 24 23 24 Rate Respiratory Rate [Anterior Bilateral Throughout] Blood Pressure O2 Sat by Pulse 96 98 99 Oximetry 07/15/16 07/15/16 07/15/16 15:20 15:30 15:40 Temperature Pulse Rate 89 89 92 H Pulse Rate [ Anterior Bilateral Throughout] Pulse Rate [ Left] Pulse Rate [ Right Radial] Respiratory 23 25 H 20 Rate Respiratory Rate [Anterior Bilateral Throughout] Blood Pressure O2 Sat by Pulse 98 97 96 Oximetry 07/15/16 07/15/16 07/15/16 15:50 16:00 16:10 Temperature 99.5 F Pulse Rate 90 88 97 H Pulse Rate [ Anterior Bilateral Throughout] Pulse Rate [ Left] Pulse Rate [ Right Radial] Respiratory 21 20 25 H Rate Respiratory Rate [Anterior Bilateral Throughout] Blood Pressure O2 Sat by Pulse 99 99 99 Oximetry 07/15/16 07/15/16 07/15/16 16:20 16:30 16:40 Temperature Pulse Rate 98 H 92 H 92 H Pulse Rate [ Anterior Bilateral Throughout] Pulse Rate [ Left] Pulse Rate [ Right Radial] Respiratory 22 23 24 Rate Respiratory Rate [Anterior Bilateral Throughout] Blood Pressure O2 Sat by Pulse 98 98 98 Oximetry 07/15/16 07/15/16 07/15/16 16:50 17:00 17:10 Temperature Pulse Rate 92 H 89 92 H Pulse Rate [ Anterior Bilateral Throughout] Pulse Rate [ Left] Pulse Rate [ Right Radial] Respiratory 25 H 25 H 26 H Rate Respiratory Rate [Anterior Bilateral Throughout] Blood Pressure O2 Sat by Pulse 99 99 98 Oximetry 07/15/16 07/15/16 07/15/16 17:20 17:30 17:40 Temperature Pulse Rate 90 92 H 91 H Pulse Rate [ Anterior Bilateral Throughout] Pulse Rate [ Left] Pulse Rate [ Right Radial] Respiratory 24 26 H 25 H Rate Respiratory Rate [Anterior Bilateral Throughout] Blood Pressure O2 Sat by Pulse 97 98 97 Oximetry 07/15/16 07/15/16 07/15/16 17:50 19:59 20:10 Temperature 98.6 F 97.6 F Pulse Rate 93 H Pulse Rate [ Anterior Bilateral Throughout] Pulse Rate [ 100 H Left] Pulse Rate [ Right Radial] Respiratory 24 22 Rate Respiratory Rate [Anterior Bilateral Throughout] Blood Pressure 126/74 O2 Sat by Pulse 98 94 Oximetry 07/15/16 07/15/16 07/15/16 20:22 20:23 20:24 Temperature Pulse Rate Pulse Rate [ 58 L Anterior Bilateral Throughout] Pulse Rate [ Left] Pulse Rate [ Right Radial] Respiratory Rate Respiratory 17 Rate [Anterior Bilateral Throughout] Blood Pressure O2 Sat by Pulse 98 96 Oximetry 07/15/16 07/15/16 07/16/16 20:28 22:00 00:00 Temperature 98.0 F Pulse Rate Pulse Rate [ 86 Anterior Bilateral Throughout] Pulse Rate [ 93 H Left] Pulse Rate [ Right Radial] Respiratory 20 20 Rate Respiratory 17 Rate [Anterior Bilateral Throughout] Blood Pressure 122/70 O2 Sat by Pulse 94 97 Oximetry 07/16/16 07/16/16 07/16/16 04:00 08:10 10:00 Temperature 97.6 F 98 F Pulse Rate 93 H Pulse Rate [ Anterior Bilateral Throughout] Pulse Rate [ 104 H Left] Pulse Rate [ 94 H Right Radial] Respiratory 20 20 Rate Respiratory Rate [Anterior Bilateral Throughout] Blood Pressure 121/72 130/90 O2 Sat by Pulse 96 Oximetry Objective Vital Signs - 12hr 07/16/16 07/16/16 07/16/16 04:00 08:10 10:00 Temperature 97.6 F 98 F Pulse Rate 93 H Pulse Rate [ 104 H Left] Pulse Rate [ 94 H Right Radial] Respiratory 20 20 Rate Blood Pressure 121/72 130/90 O2 Sat by Pulse 96 Oximetry Constitutional: no acute distress, alert Eyes: non-icteric ENT: oropharynx moist Neck: supple Effort: normal Ascultation: Left: other (bronchial BS LLL), Bilateral: wheezes (faint expiratory) Cardiovascular: regular rate and rhythm (no mrg) Gastrointestinal: normoactive bowel sounds, soft, non-tender, non-distended Integumentary: normal Extremities: no cyanosis, no edema, pink and warm Neurologic: normal mental status, non-focal exam, pupils equal and round, CN II- XII normal Psychiatric: mood appropriate, affect normal CBC and BMP: 07/16/16 08:24 07/16/16 08:24 ABG, PT/INR, D-dimer: ABG POC ABG pH 7.391 (7.35-7.45) 07/14/16 15:12 POC ABG pCO2 26.7 (35-45) L 07/14/16 15:12 POC ABG pO2 52 (80-105) L 07/14/16 15:12 POC ABG HCO3 16.2 07/14/16 15:12 POC ABG Total CO2 17 07/14/16 15:12 POC ABG O2 Sat 87 07/14/16 15:12 PT/INR, D-dimer PT 17.3 Sec. (12.2-14.9) H 07/14/16 15:03 INR 1.42 (0.87-1.13) H 07/14/16 15:03 Abnormal lab findings: Abnormal Labs 07/15/16 07/15/16 07/16/16 03:44 03:44 08:24 WBC 36.9 H 26.0 H Potassium Carbon Dioxide 17 L BUN Glucose 119 H Calcium 8.0 L 07/16/16 08:24 WBC Potassium 3.5 L Carbon Dioxide 19 L BUN 20 H Glucose 116 H Calcium Chest x-ray: report reviewed, image reviewed (L lung infiltrate)
[2016-07-16] MEDS ORDERED: ZOCOR PO SCH (22:00)
[2016-07-17] MEDS: DUONEB 0.5 MG-3 MG/3 ML SOLN IH SCH ×3 (01:46→13:04)
[2016-07-17] MEDS: SYNTHROID PO SCH (06:16)
[2016-07-17 06:23] LABS: Hematocrit 35.5 % (30.3-42.9); Hemoglobin 11.8 gm/dl (10.1-14.3); Mean Corpuscular HGB Conc 33 % (30-34); Mean Corpuscular Hemoglobin 31 pg (28-32); Mean Corpuscular Volume 92 fl (79-97); Platelet Count 224 K/mm3 (140-440); Red Blood Count 3.85 M/mm3 (3.65-5.03); Red Cell Distribution Width 13.9 % (13.2-15.2); White Blood Count 11.7 K/mm3 (4.5-11.0)
[2016-07-17] MEDS: PROTONIX PO SCH (11:10)
[2016-07-17] MEDS: HEPARIN SUB-Q SCH (11:11)
[2016-07-17] MEDS: LEVAQUIN 750MG/150ML 750 MG/150 ML BAG IV SCH (11:12)
--- NOTE | 2016-07-17 12:51 | Progress Note ---
Assessment and Plan Imp: 1. CAP 2. Sepsis, better 3. Acute respiratory failure 4. AMBROCIO 5. Mild Lactic acidosis, resolved 6. Centrilobular emphysema 7. COPD exac. 8. Chronic nicotine dependence, cigs 9. Hx of NSCLC Rec: 1. Levaquin IV; complete 10 days total IV + PO 2. Prednisone taper at d/c 3. Duonebs 4. DVT PPx 5. Smoking cessation counseling done 6. F/u CXR to resolution of infiltrates, and she understands importance of doing so; office/contact information given to her 7. Mobilize/ambulate 8. Can go home [facility]; needs f/u with us 1-2 weeks per #6 Plan of care reviewed w/ patient/family, they understand/agree Subjective Date of service: 07/17/16 Principal diagnosis: Pneumonia Interval history: No events. SOB better. Still w/ cough, clear sputum. No chest pain. On RA. Ambulating cortes without issues. Active Medications Acetaminophen (Tylenol) 650 mg PO Q6H PRN PRN Reason: Non Cardiac Pain or Temp>100.5 Albuterol (Proventil) 2.5 mg IH Q4HRT PRN PRN Reason: Shortness Of Breath Albuterol/Ipratropium (Duoneb 0.5 Mg-3 Mg/3 Ml Soln) 1 ampul IH Q6HRT [facility] Last Admin: 07/17/16 07:41 Dose: 1 ampul Heparin Sodium (Porcine) (Heparin) 5,000 unit SUB-Q Q12HR [facility] Last Admin: 07/17/16 11:11 Dose: 5,000 unit Levofloxacin/Dextrose (Levaquin 750mg/150ml) 750 mg in 150 mls @ 100 mls/hr IV Q24HR [facility] Last Admin: 07/17/16 11:12 Dose: 100 mls/hr Levothyroxine Sodium (Synthroid) 112 mcg PO QAM@0600 [facility] Last Admin: 07/17/16 06:16 Dose: 112 mcg Methylprednisolone Sodium Succinate (Solu-Medrol) 40 mg IV Q12H [facility] Last Admin: 07/17/16 00:31 Dose: 40 mg Ondansetron HCl (Zofran) 4 mg IV Q4H PRN PRN Reason: Nausea And Vomiting Pantoprazole Sodium (Protonix) 40 mg PO QDAY [facility] Last Admin: 07/17/16 11:10 Dose: 40 mg Simvastatin (Zocor) 20 mg PO QHS [facility] Last Admin: 07/16/16 22:11 Dose: 20 mg Objective Vital Signs - 12hr 07/17/16 07/17/16 07/17/16 01:49 01:57 07:05 Temperature 98.3 F Pulse Rate [ 89 89 Anterior Bilateral Throughout] Pulse Rate [ 88 Right Radial] Respiratory 18 Rate Respiratory 17 16 Rate [Anterior Bilateral Throughout] Blood Pressure 132/75 O2 Sat by Pulse 18 L Oximetry 07/17/16 07/17/16 07:43 07:58 Temperature Pulse Rate [ 88 86 Anterior Bilateral Throughout] Pulse Rate [ Right Radial] Respiratory Rate Respiratory 16 16 Rate [Anterior Bilateral Throughout] Blood Pressure O2 Sat by Pulse 94 Oximetry Constitutional: no acute distress, alert Eyes: non-icteric ENT: oropharynx moist Neck: supple Effort: normal Ascultation: Bilateral: clear Cardiovascular: regular rate and rhythm (no mrg) Gastrointestinal: normoactive bowel sounds, soft, non-tender, non-distended Integumentary: normal Extremities: no cyanosis, no edema, pink and warm Neurologic: normal mental status, non-focal exam, pupils equal and round, CN II- XII normal Psychiatric: mood appropriate, affect normal CBC and BMP: 07/17/16 05:20 07/16/16 08:24 ABG, PT/INR, D-dimer: ABG POC ABG pH 7.391 (7.35-7.45) 07/14/16 15:12 POC ABG pCO2 26.7 (35-45) L 07/14/16 15:12 POC ABG pO2 52 (80-105) L 07/14/16 15:12 POC ABG HCO3 16.2 07/14/16 15:12 POC ABG Total CO2 17 07/14/16 15:12 POC ABG O2 Sat 87 07/14/16 15:12 PT/INR, D-dimer PT 17.3 Sec. (12.2-14.9) H 07/14/16 15:03 INR 1.42 (0.87-1.13) H 07/14/16 15:03 Abnormal lab findings: Abnormal Labs 07/15/16 07/15/16 07/16/16 03:44 03:44 08:24 WBC 36.9 H 26.0 H Potassium Carbon Dioxide 17 L BUN Glucose 119 H Calcium 8.0 L 07/16/16 07/17/16 08:24 05:20 WBC 11.7 H Potassium 3.5 L Carbon Dioxide 19 L BUN 20 H Glucose 116 H Calcium Chest x-ray: report reviewed, image reviewed
--- NOTE | 2016-07-17 14:29 | Discharge Summary ---
Providers - Providers Date of Admission: 07/14/16 18:46 Date of discharge: 07/17/16 Attending physician: ANBAEL SIMMONS 07/17/16 07:05 Physical Therapy Evaluation and Treat [CONS] Routine Comment: Reason For Exam: gen weakness Primary care physician: [employer] Hospitalization Condition: Good Hospital course: Patient is 71 yo with history of lung cancer, presented with cough, altered mental status. Chest X ray showed left upper lobe pneumonia. She was also hypotensive. labs show marked leukocytosis of 40.7, elevated Creatinine, low Sodium.. She was diagnosed with sepsis, hypotension, encephalopathy. She was started on iv fluids, Levaquin iv, Oxygen and admitted to ICU. She was evaluated by [facility]er/[employer]. She felt better, was transferred to Medical floor. Her mental status went back to baseline, WBC improved down to close to normal at 11.7. She was then discharged home on 07/17/16.. Total time spent on discharge, 34 mins. Disposition: - Discharge Diagnoses (1) Sepsis Status: Acute Qualifiers: Sepsis type: S (2) Pneumonia Status: Acute Qualifiers: Pneumonia type: due to unspecified organism Aspiration pneumonia type: A Laterality: left (3) COPD exacerbation Status: Acute (4) AMBROCIO (acute kidney injury) Status: Acute (5) History of lung cancer Status: Chronic (6) Hyponatremia Status: Acute (7) Hypotension Status: Acute Qualifiers: Hypotension type: unspecified hypotension type Trimester: T Qualified Code(s): I95.9 - Hypotension, unspecified (8) Leukocytosis Status: Acute Qualifiers: Leukocytosis type: bandemia Qualified Code(s): D72.825 - Bandemia Core Measure Documentation - Palliative Care Palliative Care/ Comfort Measures: Not Applicable - Core Measures Any of the following diagnoses?: none Exam - Physical Exam Narrative exam: Gen appearance: not in acute distress, HEENT: Normocephalic, atraumatic Neck : supple, no JVD Lungs: Lungs decreased breath sounds, no crackles or wheeze. Heart : S1 and S2 regular, no murmurs rubs or gallop, Abdomen: soft non-tender, non-distended, normal bowel sounds Extremities: No edema clubbing or cyanosis, Neuro :awake, alert, oriented x 3, no focal signs, Psych: calm - Constitutional Vitals: Temp Pulse Resp BP Pulse Ox 98.3 F 86 16 132/75 94 07/17/16 07:05 07/17/16 13:20 07/17/16 13:20 07/17/16 07:05 07/17/16 07:43 Plan Activity: advance as tolerated Diet: regular Special Instructions: home health RN Additional Instructions: 1.Follow up with Primary care physician in 3-5 days. 2.Follow-up with Dr. Robin, pulmonology in one week Follow up with: PRIMARY CARE, [Primary Care Provider] - 3-5 Days Prescriptions: Albuterol Sulfate [Ventolin HFA] 2 puff IH Q4H PRN #1 pump PRN Reason: Shortness Of Breath Famotidine [Pepcid] 20 mg PO BID #60 tablet Levofloxacin [Levaquin TAB] 500 mg PO QDAY #7 tablet Prednisone [predniSONE 5 mg (6-Day Pack, 21 Tabs)] 5 mg PO .TAPER #1 tab.ds.pk
[2016-07-17 15:47] VITALS: BP 114/71
== END 2016-07-17 15:45 | disposition home or self-care (01) | DRG 871 ==
LOC: ED 14:20 → CC1 18:46 → 3A 07-15 20:04
PROVIDERS: ADMIT Internal Medicine; ATTEND Internal Medicine
PROC: 4A033R1 Measurement of Arterial Saturation, Peripheral, Percutaneous Approach (ICD-10-PCS; principal; 2016-07-14)
DX: A41.9 Sepsis, unspecified organism (principal); J18.9 Pneumonia, unspecified organism; G92 Toxic encephalopathy; J96.00 Acute respiratory failure, unspecified whether with hypoxia or hypercapnia; N17.9 Acute kidney failure, unspecified; J44.1 Chronic obstructive pulmonary disease with (acute) exacerbation; E87.1 Hypo-osmolality and hyponatremia; R65.20 Severe sepsis without septic shock; I95.9 Hypotension, unspecified; M19.90 Unspecified osteoarthritis, unspecified site; E03.9 Hypothyroidism, unspecified; E78.5 Hyperlipidemia, unspecified; F17.210 Nicotine dependence, cigarettes, uncomplicated; Z98.890 Other specified postprocedural states; Z90.710 Acquired absence of both cervix and uterus; Z71.6 Tobacco abuse counseling; Z85.118 Personal history of other malignant neoplasm of bronchus and lung
CPT/HCPCS: 36415; 71010; 71020; 80048; 80074; 81001; 82140; 82803; 82805; 83735; 83880; 84443; 84484; 85007; 85025; 85027; 85610; 85730; 87040; 87086; 93005; 93010; 94640; 94760; 96361; 96365; 96366; 96368; J0696; J1644; J1720; J1956; J2920; J7030